=== PATIENT | male | born 1940 | race Caucasian/White ===

== ENCOUNTER 2024-01-06 04:03 | Day surgery (SDC) | payer OTHER ==
[2024-01-06] MEDS ORDERED: VANCOMYCIN 1,000 MG VIAL (RESTRICTED TO ID ONLY) ONE ×2 (09:57→12:44)
[2024-01-06] MEDS ORDERED: GENTAMICIN SO4 80 MG/2 ML VIAL ONE ×2 (09:57→12:44)
[2024-01-06] MEDS ORDERED: PROPOFOL 20 ML ONE (12:11)
[2024-01-06] MEDS ORDERED: MIDAZOLAM HCL 2 MG/2 ML SINGLE DOSE VIAL ONE (12:11)
[2024-01-06 12:12] VITALS: BMI 26.3
[2024-01-06] MEDS ORDERED: SEVOFLURANE 250 ML BTL ONE (12:14)
[2024-01-06] MEDS ORDERED: LIDOCAINE HCL/PF 2% SDV 5ML VIAL ONE (12:17)
[2024-01-06] MEDS ORDERED: ONDANSETRON 4 MG/2 ML VIAL ONE (12:17)
[2024-01-06] MEDS ORDERED: oxyCODONE HCL 5 MG TABLET PO PRN (12:41)
[2024-01-06] MEDS ORDERED: ONDANSETRON 4 MG/2 ML VIAL IVPUSH PRN (12:41)
[2024-01-06] MEDS ORDERED: ACETAMINOPHEN 1000 MG/100 ML BAG IVPB PRN (12:42)
[2024-01-06] MEDS ORDERED: DEXAMETHASONE SOD PHOSPHATE 4 MG/1 ML VIAL ONE (12:49)
[2024-01-06] MEDS ORDERED: SUCCINYLCHOLINE CHLORIDE 200 MG/10 ML SYRINGE ONE (13:05)
[2024-01-06] MEDS ORDERED: ceFAZolin SODIUM 1 GM VIAL ONE (13:11)
[2024-01-06] MEDS: ceFAZolin SODIUM 1 GM VIAL IVPB ONE (13:11)
[2024-01-06] MEDS ORDERED: LIDOCAINE HCL 1%, 10 MG/ML (20ML VIAL) ONE (13:13)
[2024-01-06] MEDS ORDERED: BUPIVACAINE HCL/PF 0.5% (5MG/ML) 10 ML VIAL ONE (13:13)
[2024-01-06] MEDS ORDERED: BACITRACIN ZINC 15 GM TUBE TOPICAL OINTMENT ONE (14:13)
[2024-01-06] MEDS: LACTATED RINGERS SOLUTION 1,000 ML IV SCH (16:05)
[2024-01-06 17:06] VITALS: TEMP 97.1
[2024-01-06 18:03] VITALS: BP 132/77; PULSE 94
[2024-01-06 18:07] VITALS: RESP 18
== END 2024-01-06 18:08 | disposition home or self-care (01) ==
LOC: JASU-SURG 04:03
PROVIDERS: ATTEND Urology
PROC: 0VUS0JZ Supplement Penis with Synthetic Substitute, Open Approach (ICD-10-PCS; principal; 2024-01-06 13:00)
DX: N52.9 Male erectile dysfunction, unspecified (principal)
CPT/HCPCS: 54405; C1813; 94760; C2622